=== PATIENT | male | born 1965 | race Caucasian/White ===

== ENCOUNTER 2021-07-11 23:47 | Emergency (ER) | payer MEDICARE ==
[~2021-07-11] VITALS: Ht 170.2 cm; Wt 113.5 kg
[2021-07-12] MEDS ORDERED: ENTR1TAB (00:01)
[2021-07-12] MEDS ORDERED: SPIR-10 (00:01)
[2021-07-12] MEDS ORDERED: SERT25TA21 (00:01)
[2021-07-12] MEDS ORDERED: CARV12.5 (00:01)
[2021-07-12] MEDS ORDERED: ALPR0.25 (00:01)
[2021-07-12] MEDS ORDERED: AMIT75TA (00:01)
[2021-07-12] MEDS ORDERED: FENO160T10 (00:01)
[2021-07-12] MEDS ORDERED: ALBU8.5H (00:01)
[2021-07-12] MEDS ORDERED: POTA1TAB14 (00:01)
[2021-07-12] MEDS ORDERED: XARE20TA (00:01)
[2021-07-12] MEDS ORDERED: DIGO0.253 (00:01)
[2021-07-12] MEDS ORDERED: GABA600T4 (00:01)
[2021-07-12] MEDS ORDERED: CLIN-250 (00:01)
[2021-07-12] MEDS ORDERED: METF-839 (00:01)
[2021-07-12] MEDS ORDERED: TAMS1CAP17 (00:01)
[2021-07-12] MEDS ORDERED: FURO40TA2 (00:01)
[2021-07-12 02:11] LABS: BASO % 0.5 % (0.0-1.0); EOS # 0.1 10^3/uL (0.0-0.5); EOS % 1.9 % (0.0-3.0); HEMATOCRIT 38.7 % (42.0-52.0); HEMOGLOBIN 13.3 g/dl (13.5-17.5); LYMPH # 1.1 10^3/uL (1.5-5.0); LYMPH % 16.5 % (24.0-44.0); MEAN CORPUSCULAR HEMOGLOBIN 30.6 pg (27.0-33.0); MEAN CORPUSCULAR HGB CONC 34.4 g/dl (32.0-36.5); MONO # 0.8 10^3/uL (0.0-0.8); MONO % 12.3 % (2.0-8.0); NEUTROPHILS # 4.4 10^3/uL (1.5-8.5); NEUTROPHILS % 68.2 % (36.0-66.0); PLATELET COUNT, AUTOMATED 199 10^3/uL (150-450); RED BLOOD COUNT 4.35 10^6/uL (4.30-6.10); WHITE BLOOD COUNT 6.4 10^3/uL (4.0-10.0)
[2021-07-12 02:44] LABS: ALBUMIN 3.1 GM/DL (3.2-5.2); ALT/SGPT 36 U/L (12-78); BILIRUBIN,DIRECT < 0.1 MG/DL (0.0-0.2); BILIRUBIN,TOTAL 0.5 MG/DL (0.2-1.0); LIPASE 114 U/L (73-393); TOTAL PROTEIN 6.4 GM/DL (6.4-8.2)
[2021-07-12] MEDS ORDERED: ONDANSETRON 4MG/2ML VIAL IV ONE (06:25)
[2021-07-12] MEDS ORDERED: fentaNYL 100 MCG/2 ML INJECTION (J3010) IV ONE (06:25)
[2021-07-12] MEDS ORDERED: NS 1,000 ML IV ONE (06:25)
[2021-07-12] MEDS ORDERED: ISOVUE-370 76% 100ML VIAL As Ordered ONE (06:47)
--- NOTE | 2021-07-12 08:30 | REPVR ---
PROCEDURE INFORMATION: Exam: CT Pelvis With Contrast Exam date and time: 07/12/2021 7:55 AM Age: 55 years old Clinical indication: Perianal pain; Additional info: Perirectal tenderness, pain TECHNIQUE: Imaging protocol: Computed tomography images of the pelvis with intravenous contrast. Radiation optimization: All CT scans at this facility use at least one of these dose optimization techniques: automated exposure control; mA and/or kV adjustment per patient size (includes targeted exams where dose is matched to clinical indication); or iterative reconstruction. Contrast material: ISOVUE 370; Contrast volume: 100 ml; Contrast route: INTRAVENOUS (IV); COMPARISON: No relevant prior studies available. FINDINGS: Aorta: Mild atherosclerotic changes of the aorta. Kidneys and ureters: Partial visualization of a low-density lesion in the right kidney measuring 16 mm probably a cyst and not requiring follow-up. Stomach and bowel: No bowel obstruction. No perirectal fatty stranding. Appendix: Normal appendix. Intraperitoneal space: No free air free fluid. No peritoneal fatty stranding. Lymph nodes: No confluent lymphadenopathy. Urinary bladder: No filling defects in the urinary bladder. Reproductive: Borderline prostate. Bones/joints: No displaced fracture. Age-appropriate degenerative changes in the regional skeleton. No significant spondylolysis or listhesis. Soft tissues: Fatty stranding and soft tissue thickening about the umbilicus. The inguinal rings are open with fat bilaterally. No soft tissue abscess. IMPRESSION: No acute abnormality to explain the patient's pain. Nonemergent findings as above. Electronically signed by: Zaid Billings On 07/12/2021 08:29:33 AM
[2021-07-12 08:45] VITALS: BP 108/55
[2021-07-12] MEDS ORDERED: PERC5TAB12 PO (09:02)
[2021-07-12] MEDS ORDERED: AUGM875T28 PO (09:02)
== END 2021-07-12 09:19 | disposition home or self-care (01) ==
LOC: M ED 23:47
DX: K62.89 Other specified diseases of anus and rectum (principal); E11.9 Type 2 diabetes mellitus without complications; I11.0 Hypertensive heart disease with heart failure; I50.9 Heart failure, unspecified; E78.5 Hyperlipidemia, unspecified; Z88.5 Allergy status to narcotic agent; Z79.899 Other long term (current) drug therapy; Z79.84 Long term (current) use of oral hypoglycemic drugs
CPT/HCPCS: 72193; 80047; 80076; 81001; 83605; 83690; 85025; 87040; 93041; 96374; 96375; 99285; J2405; J3010; Q9967